=== PATIENT | male | born 1980 | race Two or more races ===

== ENCOUNTER 2025-02-04 18:59 | Emergency (ER) | payer BC ==
[~2025-02-04] VITALS: Ht 152.4 cm; Wt 88.9 kg
== END 2025-02-04 20:54 | disposition home or self-care (01) ==
LOC: ER 18:59
DX: S01.112A Laceration without foreign body of left eyelid and periocular area, initial encounter (principal); W18.39XA Other fall on same level, initial encounter; Y93.89 Activity, other specified; Y92.89 Other specified places as the place of occurrence of the external cause; Y99.9 Unspecified external cause status